=== PATIENT | female | born 1970 | race Caucasian/White ===

== ENCOUNTER 2021-12-20 21:25 | Emergency (ER) | END 2021-12-20 22:53 | disposition home or self-care (01) | LOC: LL.ED 21:25 | DX: S61.412A Laceration without foreign body of left hand, initial encounter (principal); Z23 Encounter for immunization; W26.0XXA Contact with knife, initial encounter | CPT/HCPCS: 12001; 90471; 99282-25; 99283 ==

== ENCOUNTER 2024-02-17 17:31 | Emergency (ER) | payer OTHER ==
[2024-02-17 19:08] LABS: BASOPHILS ABSOLUTE AUTO 0.04 K/uL (0.00-0.20); BASOPHILS PERCENT AUTO 0.4 % (0.0-2.0); EOSINOPHILS ABSOLUTE AUTO 0.16 K/uL (0.00-0.50); EOSINOPHILS PERCENT AUTO 1.7 % (0.0-5.0); HEMATOCRIT 43.8 % (34.0-46.0); HEMOGLOBIN 14.4 g/dL (11.7-15.5); IMMATURE GRAN ABSOLUTE AUTO 0.04 10^3/uL (0.00-0.50); IMMATURE GRAN PERCENT AUTO 0.4 % (0.0-5.0); LYMPHOCYTES ABSOLUTE AUTO 2.37 K/uL (0.50-3.50); LYMPHOCYTES PERCENT AUTO 25.8 % (10.0-50.0); MEAN CORPUSCULAR HGB CONC 32.9 g/dL (31.7-36.0); MEAN CORPUSCULAR VOLUME 88.3 fL (84.0-98.0); MONOCYTES PERCENT AUTO 4.3 % (2.0-14.0); NEUTROPHILS ABSOLUTE AUTO 6.19 K/uL (1.40-7.00); NEUTROPHILS PERCENT AUTO 67.4 % (45.0-80.0); PLATELET COUNT,PLT 284 K/uL (150-350); RED BLOOD CELL COUNT 4.96 M/uL (3.77-5.09); WHITE BLOOD CELL COUNT,WBC 9.2 K/uL (4.0-10.2)
[2024-02-17 19:30] LABS: ALANINE AMINOTRANSFERASE,ALT 41 U/L (12-78); ALBUMIN 3.8 g/dL (3.4-5.0); ALKALINE PHOSPHATASE 117 IU/L (46-116); ANION GAP 7.8 meq/L (7-15); ASPARTATE AMNIOTRANSFERASE,AST 28 U/L (15-37); BILIRUBIN TOTAL 0.7 mg/dL (0.2-1.0); BLOOD UREA NITROGEN,BUN 8 mg/dL (7-18); CALCIUM 9.1 mg/dL (8.5-10.1); CARBON DIOXIDE,CO2 29.2 mmol/L (21.0-32.0); CHLORIDE,CL 104 mmol/L (98-107); ESTIMATED GFR 103 mL/min (>=60); GLUCOSE RANDOM 114 mg/dL (70-99); POTASSIUM,K 4.1 mmol/L (3.5-5.1); PROTEIN TOTAL,TP 7.6 g/dL (6.4-8.2); SODIUM,NA 141 mmol/L (136-145)
[2024-02-17 19:34] LABS: INR 0.9 (0.9-1.1); PROTHROMBIN TIME 9.3 SEC (9.0-11.1)
[2024-02-17] MEDS: Benzonatate 100 MG Cap PO ONE (20:14)
== END 2024-02-17 20:15 | disposition home or self-care (01) ==
LOC: LL.ED 17:31
DX: R07.81 Pleurodynia (principal); R05.1 Acute cough; J45.909 Unspecified asthma, uncomplicated; K21.9 Gastro-esophageal reflux disease without esophagitis; F17.210 Nicotine dependence, cigarettes, uncomplicated; Z79.899 Other long term (current) drug therapy; Z91.048 Other nonmedicinal substance allergy status; Z91.011 Allergy to milk products; Z88.0 Allergy status to penicillin; Z91.018 Allergy to other foods
CPT/HCPCS: 36415; 71046; 80053; 84484; 85025; 85610; 93005; 93010; 99284; A9270

== ENCOUNTER 2025-03-01 14:54 | Emergency (ER) | payer OTHER ==
[2025-03-01 15:42] LABS: BASOPHILS ABSOLUTE AUTO 0.03 K/uL (0.00-0.20); BASOPHILS PERCENT AUTO 0.5 % (0.0-2.0); EOSINOPHILS ABSOLUTE AUTO 0.03 K/uL (0.00-0.50); EOSINOPHILS PERCENT AUTO 0.5 % (0.0-5.0); IMMATURE GRAN ABSOLUTE AUTO 0.03 10^3/uL (0.00-0.04); IMMATURE GRAN PERCENT AUTO 0.5 % (0.0-0.4); LYMPHOCYTES ABSOLUTE AUTO 1.30 K/uL (0.50-3.50); LYMPHOCYTES PERCENT AUTO 23.6 % (10.0-50.0); MONOCYTES ABSOLUTE AUTO 0.42 K/uL (0.00-1.00); MONOCYTES PERCENT AUTO 7.6 % (2.0-14.0); NEUTROPHILS ABSOLUTE AUTO 3.71 K/uL (1.40-7.00); NEUTROPHILS PERCENT AUTO 67.3 % (45.0-80.0); PLATELET COUNT,PLT 237 K/uL (150-350); RED BLOOD CELL COUNT 5.20 M/uL (3.77-5.09); RED CELL DISTRIBUTION WIDTH 12.3 % (11.2-14.1); WHITE BLOOD CELL COUNT,WBC 5.5 K/uL (4.0-10.2)
[2025-03-01 15:57] LABS: LACTIC ACID 1.6 mmol/L (0.4-2.0)
[2025-03-01 16:02] LABS: APPEARANCE,URINE CLEAR; GLUCOSE,URINE NEGATIVE (NEGATIVE); OCCULT BLOOD,URINE TRACE-INTACT (NEGATIVE)
[2025-03-01 16:11] LABS: ALANINE AMINOTRANSFERASE,ALT 46.0 U/L (12-78); ASPARTATE AMNIOTRANSFERASE,AST 35.0 U/L (15-37); BILIRUBIN TOTAL 0.8 mg/dL (0.2-1.0); BLOOD UREA NITROGEN,BUN 7.0 mg/dL (7-18); CARBON DIOXIDE,CO2 27.3 mmol/L (21.0-32.0); CHLORIDE,CL 102.0 mmol/L (98-107); CREATININE 0.77 mg/dL (0.51-1.17); EST CRCL DRUG DOSING (CG) 90.32 mL/min; GLUCOSE RANDOM 142.0 mg/dL (70-99); POTASSIUM,K 3.6 mmol/L (3.5-5.1); PROTEIN TOTAL,TP 7.9 g/dL (6.4-8.2); SODIUM,NA 141.0 mmol/L (136-145)
[2025-03-01 16:12] LABS: ESTIMATED GFR 92.0 mL/min (>=60)
[2025-03-01] MEDS: Diltiazem 25 MG/5 ML SDV IVPUSH ONE ×2 (16:16→16:32)
[2025-03-01 16:36] LABS: INR 1.0 (0.9-1.1); PTT,PARTIAL THROMBOPLSTIN TIME 24.6 SEC (23.8-34.4)
[2025-03-01] MEDS: Take Home: Azithromycin 250 MG 5 Day, 6 Tab Pack PO ONE (17:30)
[2025-03-01] MEDS: Take Home: Benzonatate 100 MG, 6 Cap Pack PO ONE (17:30)
[2025-03-01] MEDS: Amiodarone 150 MG/3 ML SDV IVPUSH ONE (18:14)
== END 2025-03-01 18:33 ==
LOC: SUPCPDRO 14:54 → LL.ED 14:54
DX: I48.92 Unspecified atrial flutter (principal); J22 Unspecified acute lower respiratory infection; Z91.0110 Allergy to milk products, unspecified; Z88.0 Allergy status to penicillin; Z91.018 Allergy to other foods; Z91.09 Other allergy status, other than to drugs and biological substances
CPT/HCPCS: 36415; 71046; 80053; 81001; 83605; 83735; 84484; 85025; 85610; 85730; 93005; 93010; 96361; 96365; 96375; 96376; 99284; 99285-25; A9270-GY; J0282; J1163; J1920; J3490; J7030